=== PATIENT | female | born 1945 | race Caucasian/White ===

== ENCOUNTER 2020-06-02 10:58 | Outpatient (CLI) | payer MEDICARE, OTHER ==
--- NOTE | 2020-06-03 13:38 | Mammography Report ---
BILATERAL DIGITAL SCREENING MAMMOGRAM 3D/2D: 06/02/2020 CLINICAL: Routine screening. Comparison is made to exams dated: 05/02/2019 mammogram, 05/01/2018 mammogram, 04/30/2017 mammogram, 04/14/2016 mammogram, 04/13/2015 mammogram, and 03/26/2014 mammogram - [facility] [place]. The tissue of both breasts is heterogeneously dense. This may lower the sensitivity of mammography. No significant masses, calcifications, or other findings are seen in either breast. There has been no significant interval change. IMPRESSION: NEGATIVE There is no mammographic evidence of malignancy. A 1 year screening mammogram is recommended. This exam was interpreted at Station ID: [id number]. NOTE: For mammograms, a report in lay terms will be sent to the patient. Approximately 15% of breast malignancies will not be visualized mammographically. In the management of a palpable breast mass, a negative mammogram must not discourage biopsy of a clinically suspicious lesion. Electronically Signed By: True Groves M.D. ddp/penrad:06/02/2020 14:34:04 ACR BI-RADS Category 1: Negative 3341F PARENCHYMAL PATTERN: (D) - The breast(s) demonstrate(s) heterogeneously dense fibroglandular hamida bryan. BI-RADS CATEGORY: (1) - 1 RECOMMENDATION: (ANNUAL) - Recommend routine annual screening mammography. [id number] 1 year screening LATERALITY: (B)
== END 2020-06-02 10:59 | disposition home or self-care (01) ==
LOC: DI 10:58
PROVIDERS: ATTEND Family Medicine
DX: Z12.31 Encounter for screening mammogram for malignant neoplasm of breast (principal)
CPT/HCPCS: 77063; 77067

== ENCOUNTER 2021-03-31 10:28 | Outpatient (CLI) | payer MEDICARE, OTHER ==
[2021-03-31 15:12] LABS: ALBUMIN 4.4 g/dL (3.2-5.5); ALBUMIN/GLOBULIN RATIO 1.8 (1.0-2.2); ALKALINE PHOSPHATASE 64 IU/L (42-121); ALT ALANINE AMINOTRANSFERASE 13 IU/L (10-60); AST ASPARTATE AMINOTRANSFERASE 25 IU/L (10-42); BILIRUBIN,TOTAL 0.9 mg/dL (0.2-1.0); BUN - BLOOD UREA NITROGEN 15 mg/dL (6-20); CALCIUM 9.3 mg/dL (8.5-10.3); CARBON DIOXIDE - CO2 28 mmol/L (21-32); CHLORIDE 100 mmol/L (101-111); CHOL/HDL RATIO 3.1 (<4.4); CHOLESTEROL 266 mg/dL; CREATININE 0.7 mg/dL (0.4-1.0); GFR - MDRD 81 (>89); GLUCOSE 102 mg/dL (70-100); HDL CHOLESTEROL 86 mg/dL; LDL CHOLESTEROL,CALCULATED 168 mg/dL; POTASSIUM 3.9 mmol/L (3.5-5.0); SODIUM 137 mmol/L (135-145); TOTAL PROTEIN 6.9 g/dL (6.7-8.2); TRIGLYCERIDES 59 mg/dL; VLDL CHOLESTEROL 12 mg/dL
[2021-04-01 12:21] LABS: HEPATITIS C ANTIBODY NON-REACTIVE (NON-REACTIVE)
== END 2021-03-31 10:29 | disposition home or self-care (01) ==
LOC: LAB.S 10:28
PROVIDERS: ATTEND Physician Assistant
DX: E78.00 Pure hypercholesterolemia, unspecified (principal); Z11.59 Encounter for screening for other viral diseases
CPT/HCPCS: 36415; 80053; 80061; 83721; 86803

== ENCOUNTER 2021-06-23 10:54 | Outpatient (CLI) | payer MEDICARE, OTHER ==
--- NOTE | 2021-06-23 17:35 | DEXA Report ---
PROCEDURE: Dexa Spine and/or Hip INDICATIONS: POST MENOPAUSAL TECHNIQUE: Dual energy x-ray absorptiometry (DXA) was performed on a PLUMgrid System. Regions measur ed are the AP Spine, femoral neck, and if needed forearm. COMPARISON: None. FINDINGS: Lumbar Spine: Bone Mineral Density 0.943 g/cm/cm,T score -2.0, osteopenia Left Hip: Bone Mineral Density 0.889 g/cm/cm,T score -0.9, normal Left Femoral Neck: Bone Mineral Density 0.821 g/cm/cm, T score -1.6, osteopenia (T score greater or equal to -1.0: NORMAL) (T score from -1.1 to -2.4: OSTEOPENIA) (T score less than or equal to -2.5 to: OSTEOPOROSIS) Impression: Osteopenia Patients with diagnosis of osteoporosis or osteopenia should have regular bone mineral density assess ment. For those eligible for Medicare, routine testing is allowed once every 2 years. Testing frequ ency can be increased for patients who have rapidly progressing disease or for those who are receivin g medical therapy to restore bone mass. Reviewed by: Catherine Oseguera MD, PhD on 06/23/2021 5:34 PM PDT Approved by: Catherine Oseguera MD, PhD on 06/23/2021 5:34 PM PDT Station ID: [id number]
== END 2021-06-23 10:55 | disposition home or self-care (01) ==
LOC: DI 10:54
PROVIDERS: ATTEND Physician Assistant
DX: Z78.0 Asymptomatic menopausal state (principal); M85.89 Other specified disorders of bone density and structure, multiple sites

== ENCOUNTER 2021-06-23 10:55 | Outpatient (CLI) | payer MEDICARE, OTHER ==
--- NOTE | 2021-06-27 08:49 | Mammography Report ---
BILATERAL DIGITAL SCREENING MAMMOGRAM 3D/2D: 06/23/2021 CLINICAL: Routine screening. Comparison is made to exams dated: 06/23/2021 mammogram, 06/02/2020 mammogram - [facility], 05/02/2019 mammogram, 05/01/2018 mammogram, 04/30/2017 mammogram, and 04/14/2016 mammogram - [facility]. The tissue of both breasts is heterogeneously dense. This may lower the sensit ivity of mammography. No significant masses, calcifications, or other findings are seen in either breast. There has been no significant interval change. IMPRESSION: NEGATIVE There is no mammographic evidence of malignancy. A 1 year screening mammogram is recommended. This exam was interpreted at Station ID: [id number]. NOTE: For mammograms, a report in lay terms will be sent to the patient. Approximately 15% of breast malignancies will not be visualized mammographically. In the management of a palpable breast mass, a negative mammogram must not discourage biopsy of a clinically suspicious lesion. Electronically Signed By: Shauna farmer/marcia:06/24/2021 10:03:36 ACR BI-RADS Category 1: Negative 3341F PARENCHYMAL PATTERN: (D) - The breast(s) demonstrate(s) heterogeneously dense fibroglandular hamida bryan. BI-RADS CATEGORY: (1) - 1 RECOMMENDATION: (ANNUAL) - Recommend routine annual screening mammography. [id number] 1 year screening LATERALITY: (B)
== END 2021-06-23 10:56 | disposition home or self-care (01) ==
LOC: DI 10:55
PROVIDERS: ATTEND Physician Assistant
DX: Z12.31 Encounter for screening mammogram for malignant neoplasm of breast (principal)

== ENCOUNTER 2021-07-29 09:59 | Day surgery (SDC) | payer MEDICARE, OTHER ==
[2021-07-29] MEDS ORDERED: LACTATED RINGERS 1,000 ML IV ONE ×2 (10:05→12:11)
--- NOTE | 2021-07-29 10:16 | ANESTHESIA ---
Pre-Anesthesia VS, & Labs - Diagnosis positive cologuard - Procedure colonoscopy w/biopsies - NPO >8 hours - Is Patient ?: No - Lab Results Lab results reviewed: Yes Home Medications and Allergies Home Medications: Ambulatory Orders No Known Home Medications 07/28/21 No Known Home Medications 07/28/21 Allergies/Adverse Reactions: Allergies Allergy/AdvReac Type Severity Reaction Status Date / Time nitroglycerin AdvReac Unknown Verified 07/28/21 12:33 Anes History & Medical History - Anesthetic History Anesthesia Complications: reports: No previous complications Family history of Anesthesia Complications: Denies Family history of Malignant Hyperthermia: Denies - Medical History Cardiovascular: reports: None Pulmonary: reports: None Gastrointestinal: reports: None, Hemorrhoids Urinary: reports: None Musculoskeletal: reports: None Endocrine/Autoimmune: reports: None Skin: reports: Eczema - Surgical History General: reports: Colonoscopy Gynecologic: reports: Tubal ligation Exam General: Alert, Oriented x3, Cooperative Dental: WNL, Other (loose crown at upper right) Mouth Openin Fingerbreadth Neck Mobility: Normal Mallampati classification: II Thyromental Distance: 4-6 cm Respiratory: Lungs clear, Normal breath sounds, No respiratory distress Cardiovascular: Regular rate Neurological: Normal speech Mental/Cognitive Status: Alert/Oriented X3, Normal for patient Cognitive Status: Within normal limits Plan Anesthesia Type: Total IV Consent for Procedure(s) Verified and Reviewed: Yes Code Status: Attempt Resuscitation ASA classification: 2-Mild systemic disease Is this case an emergency?: No
--- NOTE | 2021-07-29 10:54 | HISTORY & PHYSICAL EXAMINATION ---
Chief Complaint - Chief Complaint Chief Complaint: here for colon cancer screening History of Present Illness - History Obtained From Records Reviewed: yes History obtained from: pt Exam Limitations: none - History of Present Illness HPI Comment/Other: Positive cologuard. 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 Meds/Allgy - Home Medications Home Medications: Ambulatory Orders Medication Instructions Recorded Confirmed No Known Home Medications 07/28/21 07/28/21 - Allergies Allergies/Adverse Reactions: Allergies Allergy/AdvReac Type Severity Reaction Status Date / Time nitroglycerin AdvReac Unknown Verified 07/28/21 12:33 Review of Systems - Other Findings Other Findings: 10 pt ros as above otherwise unremarkable Exam - Vital Signs Reviewed Vital Signs: Yes Vital Signs: Vital Signs x48h Temp Pulse Resp BP Pulse Ox 07/29/21 10:26 36.6 C 71 13 134/70 H 100 - Physical Exam General Appearance: positive: No acute distress, Alert Eyes Bilateral: positive: PERRL, EOMI ENT: positive: No signs of dehydration Neck: positive: No JVD Respiratory: positive: No respiratory distress, Breath sounds nml Cardiovascular: positive: Regular rate & rhythm Abdomen: positive: Non-tender, No distention Neurologic/Psychiatric: positive: Oriented x3 Conclusion/Plan - Problem List (1) Positive colorectal cancer screening using Cologuard test Conclusion/Plan: plan colonoscopy. parq held and consent obtained - Lab Results Lab results reviewed: Yes
[2021-07-29] MEDS ORDERED: LIDOCAINE-MPF 2% 5 ML VIAL ONE (11:40)
[2021-07-29] MEDS ORDERED: PROPOFOL 500 MG/50 ML 500 MG/50 ML VIAL ONE (12:02)
[2021-07-29 12:32] VITALS: BP 108/94
--- NOTE | 2021-07-29 12:58 | ANESTHESIA POST OP EVALUATION ---
Anesthesia Post Eval - Post Anesthesia Eval Vitals: Last Vital Signs Temp 36.8 C 07/29/21 12:12 Pulse 72 07/29/21 12:32 Resp 17 07/29/21 12:32 BP 108/94 H 07/29/21 12:32 Pulse Ox 100 07/29/21 12:32 CV Function Including HR & BP: Stable Pain Control: Satisfactory Nausea & Vomiting: Negative Mental Status: Baseline Respiratory Status: Airway Patent Hydration Status: Satisfactory Anesthesia Complications: None
== END 2021-07-29 10:00 | disposition home or self-care (01) ==
LOC: SDS 09:59
PROVIDERS: ATTEND Surgery
DX: K57.30 Diverticulosis of large intestine without perforation or abscess without bleeding (principal); Z20.822 Contact with and (suspected) exposure to COVID-19
CPT/HCPCS: 45378; 87635; J7120

== ENCOUNTER 2022-02-23 11:28 | Outpatient (CLI) | payer MEDICARE, OTHER ==
--- NOTE | 2022-02-23 15:26 | XRAY Report ---
PROCEDURE: Hip w/Pelvis 2-3V RT INDICATIONS: PAIN IN R HIP JOINT TECHNIQUE: AP pelvis with lateral view(s) of the right hip(s). COMPARISON: None. FINDINGS: Bones: No fractures or dislocations. Pelvic ring appears intact. No suspicious bony lesions. Soft tissues: The visualized bowel gas pattern is normal. No suspicious soft tissue calcifications. IMPRESSION: Unremarkable right hip and pelvis radiograph Reviewed by: Jayson Ojeda MD on 02/23/2022 2:25 PM [facility] Approved by: Jayson Ojeda MD on 02/23/2022 2:25 PM AK[facility] Station ID: [id number]
--- NOTE | 2022-02-23 16:42 | XRAY Report ---
PROCEDURE: Knee 3 View RT INDICATIONS: PAIN OF R KNEE JOINT TECHNIQUE: 3 views of the right knee(s) were acquired. COMPARISON: None. FINDINGS: Bones: No fractures or dislocations. No suspicious bony lesions. Soft tissues: No joint effusion. No suspicious soft tissue calcifications. IMPRESSION: No acute fracture. No osseous lesion. If symptoms and/or clinical suspicion for patholog y continue, further assessment with repeat plain films, or advanced imaging (e.g., CT, MRI, or bone s can) is recommended for further assessment. Reviewed by: Scott Reyes MD on 02/23/2022 4:40 PM PDT Approved by: Scott Reyes MD on 02/23/2022 4:40 PM PDT Station ID: [id number]
== END 2022-02-23 11:29 | disposition home or self-care (01) ==
LOC: DI.S 11:28
PROVIDERS: ATTEND Family Medicine
DX: M25.551 Pain in right hip (principal); M25.561 Pain in right knee

== ENCOUNTER 2022-06-26 10:18 | Outpatient (CLI) | payer MEDICARE, OTHER ==
--- NOTE | 2022-06-27 10:32 | Mammography Report ---
BILATERAL DIGITAL SCREENING MAMMOGRAM 3D/2D WITH EXAGGERATED CC: 06/26/2022 CLINICAL: Routine screening. Family history of breast cancer. Comparison is made to exams dated: 06/23/2021 mammogram, 06/23/2021 mammogram, 06/02/2020 mammogram - [facility], and 05/02/2019 mammogram - [facility] [place]. Both breasts are heterogeneously dense, which may obscure small masses (category c / 51-75% glandula r tissue). No significant masses, calcifications, or other findings are seen in either breast. There has been no significant interval change. IMPRESSION: NEGATIVE There is no mammographic evidence of malignancy. A 1 year screening mammogram is recommended. Based on the Tyrer Cuzick model (a risk assessment model) the patients lifetime risk is 6.8% and her 10 year risk is 0.0%. According to the ACR, ACS, and NCCN guidelines, an annual breast MRI exam carlos g with mammogram is recommended if the patients lifetime risk is 20% or greater. This exam was interpreted at Station ID: [id number]. NOTE: For mammograms, a report in lay terms will be sent to the patient. Approximately 15% of breast malignancies will not be visualized mammographically. In the management of a palpable breast mass, a negative mammogram must not discourage biopsy of a clinically suspicious lesion. Electronically Signed By: Carlene hollis/marcia:06/26/2022 14:50:42 ACR BI-RADS Category 1: Negative 3341F PARENCHYMAL PATTERN: (D) - The breast(s) demonstrate(s) heterogeneously dense fibroglandular hamida bryan. BI-RADS CATEGORY: (1) - 1 RECOMMENDATION: (ANNUAL) - Recommend routine annual screening mammography. [id number] 1 year screening LATERALITY: (B)
== END 2022-06-26 10:19 | disposition home or self-care (01) ==
LOC: DI.S 10:18
DX: Z12.31 Encounter for screening mammogram for malignant neoplasm of breast (principal); Z80.3 Family history of malignant neoplasm of breast

== ENCOUNTER 2022-09-18 13:53 | Outpatient (CLI) | payer MEDICARE, OTHER ==
--- NOTE | 2022-09-18 12:15 | XRAY Report ---
PROCEDURE: Foot 3 View LT INDICATIONS: SPRAIN OF LEFT FOOT TECHNIQUE: 3 views of the foot were acquired. COMPARISON: None FINDINGS: Bones: No fractures or dislocations. Osteoarthritic changes are noted throughout throughout left fo ot with joint space narrowing and subchondral sclerosis most notably at first MTP joint and interphal angeal joint. No gross bony erosive changes. No suspicious bony lesion. Soft tissues: No tibiotalar joint effusion. Achilles tendon appears normal. IMPRESSION: No acute left foot fracture or dislocation. Left foot osteoarthritis. No suspicious bony lesions. Reviewed by: Davian Horowitz MD on 09/18/2022 12:14 PM [facility] Approved by: Davian Horowitz MD on 09/18/2022 12:14 PM PST Station ID: [id number]
== END 2022-09-18 13:54 | disposition home or self-care (01) ==
LOC: DI.S 13:53
PROVIDERS: ATTEND Physician Assistant Medical
DX: M19.072 Primary osteoarthritis, left ankle and foot (principal)

== ENCOUNTER 2023-02-01 11:57 | Outpatient (CLI) | payer MEDICARE, OTHER ==
--- NOTE | 2023-02-01 17:55 | Ultrasound Report ---
PROCEDURE: Head or Neck Soft Tissue INDICATIONS: CERVICAL LYMPHADENOPATHY TECHNIQUE: Real-time scanning was performed of the neck, with image documentation. COMPARISON: None FINDINGS: Multiple small lymph nodes are seen in the left neck that are not significantly enlarged by imaging s ize criteria. No significant lymphadenopathy in the right neck. Incidental note is made of thyroid no dules that are now characterized on this exam. IMPRESSION: 1.No significantly enlarged cervical lymph nodes. 2.Incidental note of thyroid nodules that are not completely characterized on this exam. Consider ded icated follow-up thyroid ultrasound if indicated clinically. Reviewed by: John Amador MD on 02/01/2023 5:54 PM PDT Approved by: John Amador MD on 02/01/2023 5:54 PM PDT Station ID: [id number]
== END 2023-02-01 11:58 | disposition home or self-care (01) ==
LOC: DI 11:57
PROVIDERS: ATTEND Physician Assistant
DX: R59.0 Localized enlarged lymph nodes (principal)

== ENCOUNTER 2023-02-15 12:48 | Outpatient (CLI) | payer MEDICARE, OTHER ==
--- NOTE | 2023-02-15 16:54 | Ultrasound Report ---
PROCEDURE: Head or Neck Soft Tissue INDICATIONS: THYROID NODULE TECHNIQUE: Real-time scanning was performed of the thyroid gland, with image documentation. COMPARISON: None FINDINGS: Right: Thyroid lobe measures 4.1 x 1.0 x 1.2 cm. Left: Thyroid lobe measures 3.8 x 1.3 x 1.2 Isthmus: 2 mm thick. Nodule number: One Location: Right mid thyroid Size: 0.6 x 0.7 x 0.5 cm. Composition: Solid. Echogenicity: Isoechoic. Shape: wider than tall. Margins: Irregular. Echogenic foci: Punctate. Total points: 8 ACR TI-RADS category: 5 Recommendations: Follow-up imaging every year for 5 years Nodule number: Two Location: Right mid thyroid Size: 0.6 x 0.8 x 0.5 cm. Composition: Solid. Echogenicity: Hypoechoic. Shape: wider than tall. Margins: Smooth (0 points). Echogenic foci: None (0 points). Total points: 4 ACR TI-RADS category: 4 Recommendations: No follow-up necessary based on size Nodule number: Three Location: Right lower thyroid Size: 1.1 x 1.5 x 1.2 cm. Composition: Solid. Echogenicity: Hypoechoic. Shape: wider than tall. Margins: Smooth (0 points). Echogenic foci: None (0 points). Total points: 4 ACR TI-RADS category: 4. Recommendations: Follow-up imaging at 1, 2, 3 and 5 years. Nodule number: Four Location: Left mid thyroid Size: 0.6 x 0.8 by 0.7 cm Composition: Solid. Echogenicity: Hypoechoic. Shape: wider than tall. Margins: Smooth (0 points). Echogenic foci: None (0 points). Total points: 4 ACR TI-RADS category: 4 Recommendations: Follow-up imaging at 1, 2, 3, and 5 years. IMPRESSION: 1. Bilateral thyroid nodules with follow-up imaging recommendations as above. Reviewed by: Scott Reyes MD on 02/15/2023 4:53 PM PDT Approved by: Scott Reyes MD on 02/15/2023 4:53 PM PDT Station ID: [id number]
== END 2023-02-15 12:49 | disposition home or self-care (01) ==
LOC: DI 12:48
PROVIDERS: ATTEND Physician Assistant
DX: E04.2 Nontoxic multinodular goiter (principal)

== ENCOUNTER 2023-07-16 14:10 | Outpatient (CLI) | payer MEDICARE, OTHER ==
--- NOTE | 2023-07-18 12:04 | Mammography Report ---
BILATERAL DIGITAL SCREENING MAMMOGRAM 3D/2D WITH EXAGGERATED CC: 07/16/2023 CLINICAL: Routine screening. Family history of breast cancer. Comparison is made to exams dated: 06/26/2022 mammogram, 06/23/2021 mammogram, 06/23/2021 mammogram, 06/02/2020 mammogram - [facility], 05/02/2019 mammogram, and 05/01/2018 mammogram [facility]. Both breasts are heterogeneously dense, which may obscure small masses (category c / 51-75% glandular tissue). No significant masses, calcifications, or other findings are seen in either breast. IMPRESSION: NEGATIVE There is no mammographic evidence of malignancy. A 1 year screening mammogram is recommended. Based on the Tyrer Cuzick model (a risk assessment model) the patients lifetime risk is 6.1% and her 10 year risk is 0.0%. According to the ACR, ACS, and NCCN guidelines, an annual breast MRI exam carlos g with mammogram is recommended if the patients lifetime risk is 20% or greater. This exam was interpreted at Station ID: [id number]. NOTE: For mammograms, a report in lay terms will be sent to the patient. Approximately 15% of breast malignancies will not be visualized mammographically. In the management of a palpable breast mass, a negative mammogram must not discourage biopsy of a clinically suspicious lesion. Electronically Signed By: Janee Barrera M.D., PH.D nii/marcia:07/18/2023 00:45:51 letter sent: No_Letter ACR BI-RADS Category 1: Negative 3341F PARENCHYMAL PATTERN: (D) - The breast(s) demonstrate(s) heterogeneously dense fibroglandular hamida bryan. BI-RADS CATEGORY: (1) - 1 Mammogram [id number] 1 year screening LATERALITY: (B)
== END 2023-07-16 14:11 | disposition home or self-care (01) ==
LOC: DI.S 14:10
PROVIDERS: ATTEND Physician Assistant
DX: Z12.31 Encounter for screening mammogram for malignant neoplasm of breast (principal); R92.333 Mammographic heterogeneous density, bilateral breasts; Z80.3 Family history of malignant neoplasm of breast

== ENCOUNTER 2023-09-20 14:39 | Outpatient (CLI) | payer MEDICARE, OTHER | END 2023-09-20 14:40 | disposition EMS.NT | LOC: EMS 14:39 | DX: M54.50 Low back pain, unspecified (principal); M79.604 Pain in right leg; X50.1XXA Overexertion from prolonged static or awkward postures, initial encounter; Y93.E8 Activity, other personal hygiene; Y92.009 Unspecified place in unspecified non-institutional (private) residence as the place of occurrence of the external cause ==

== ENCOUNTER 2023-09-21 10:00 | Outpatient (CLI) | payer MEDICARE, OTHER | END 2023-09-21 10:01 | disposition critical access hospital (66) | LOC: EMS 10:00 | DX: S39.92XA Unspecified injury of lower back, initial encounter (principal); X50.1XXA Overexertion from prolonged static or awkward postures, initial encounter; Y93.E8 Activity, other personal hygiene | CPT/HCPCS: A0425; A0429 ==

== ENCOUNTER 2023-09-21 10:38 | Emergency (ER) | payer MEDICARE, OTHER ==
[2023-09-21] MEDS ORDERED: ONDANSETRON ODT 4 MG TABLET TL STA (11:19)
[2023-09-21] MEDS ORDERED: HYDROmorphone 1 MG/ML CARPUJECT IM STA (11:19)
--- NOTE | 2023-09-21 11:23 | ED Physician Documentation ---
PD HPI BACK PAIN - Stated complaint Stated Complaint: BACK PX - Chief complaint Chief Complaint: Back Pain - History obtained from History obtained from: Patient - Additional information Additional information: She has a history of intermittent back pain. Yesterday afternoon she was putting on her socks while standing up and developed significant pain in the right low back. She is pain-free at rest but with any motion she has severe pain. There is no weakness, numbness, tingling, saddle anesthesia, fevers, nor incontinence with it. She tried Tylenol without relief. PD PAST MEDICAL HISTORY - Past Medical History Other Past Medical History: chronic neck/shoulder pain, R leg lymphedema - Present Medications Home Medications: Ambulatory Orders Medication Instructions Recorded Confirmed Multivitamin 1 each PO DAILY 07/29/21 07/29/21 Cyclobenzaprine [Flexeril] 10 mg PO TID PRN #20 tablet 09/21/23 HYDROcod/ACETAM 5/325 [[place] 5/325] 1 - 2 tab PO Q6H PRN #15 tablet 09/21/23 Ibuprofen [Motrin] 600 mg PO Q6H PRN #10 tab 09/21/23 - Allergies Allergies/Adverse Reactions: Allergies Allergy/AdvReac Type Severity Reaction Status Date / Time nitroglycerin AdvReac Unknown Verified 07/29/21 11:03 - Social History Does the pt smoke?: No Smoking Status: Never smoker - POLST Patient has POLST: No PD ED PE NORMAL - Vitals Vital signs reviewed: Yes - General General: Alert and oriented X 3, Other (She is comfortable at rest but winces with any motion) - Abdomen Abdomen: Non tender - Back Back: No spinal TTP - Extremities Extremities: Other (The patient has equal and normal Achilles and patellar reflexes bilaterally. Normal sensation in all areas of the legs. Patient denies saddle anesthesia. Normal strength in flexion-extension at the ankles, knees, and flexion of the hips.) - Neuro Neuro: Alert and oriented X 3, Normal speech Results - Vitals Vitals: Vital Signs - 24 hr 09/21/23 09/21/23 11:01 13:25 Temperature 36.8 C Heart Rate 69 69 Respiratory 18 18 Rate Blood Pressure 125/86 H 115/63 O2 Saturation 100 97 Oxygen O2 Source Room air PD Medical Decision Making - ED course ED course: This patient has seemingly uncomplicated musculoskeletal back pain. The patient has no "red flags." Specifically denies IV drug use, fevers, incontinence, saddle anesthesia. Spinal epidural abscess was considered, given that the patient has no fever, is not diabetic, has no spinal tenderness, does not use IV drugs, and has no bilateral neurologic symptoms, the diagnosis of spinal epidural abscess is considered exceedingly unlikely. Initially medicated with 1 mg of Dilaudid IM after which she was still nonfunctional. Subsequently got IM Toradol and Ativan and was able to walk unassisted. Departure - Departure Disposition: Home, Self Care Clinical Impression: Back spasm Condition: Good Record reviewed to determine appropriate education?: Yes Instructions: ED Spasm Back No Trauma Prescriptions: Cyclobenzaprine [Flexeril] 10 mg PO TID PRN #20 tablet PRN Reason: Spasms Ibuprofen [Motrin] 600 mg PO Q6H PRN #10 tab PRN Reason: Pain HYDROcod/ACETAM 5/325 [[place] 5/325] 1 - 2 tab PO Q6H PRN #15 tablet PRN Reason: Pain Comments: I sent your prescription electronically to the [facility] in [place]. I expect you to improve over the next few days. You can use heat and gentle stretching as well. Call your doctor to arrange a follow-up appointment, make the next available appointment. In the interim, return anytime if worse or if new symptoms develop. I am prescribing a short course of narcotic pain medication for you. These are potentially dangerous and addictive medications that should be used carefully. These medications may constipate you. Take an [id number] stool softener (docusate) twice daily with plenty of water while taking these medications. If you go 24 hours without a bowel movement, take [id number]-[id number]-[id number] miralax, per package instructions. Do not drink or drive while taking these medications. If you received narcotic or sedating medications while in the emergency department, do not drive for 24 hours. Store this medication in a safe, secure place and out of reach of children. It is a violation of federal law to give or sell this medication to another person or to use in a manner other than prescribed. The ED will not refill narcotic prescriptions, including prescriptions lost or stolen. To dispose of unwanted medications: 1. [facility]'s Office provides a drop box for medication in pill form only (no liquids) 8:00 am to 4:30 p.m. Sunday-Sunday in the lobby of [facility], [address] Empty pills into ziplock bag before disposal. Call [phone] for information. 2.[employer] is a free service available to all [facility] residents. Go to [email or web address] Note that many narcotic pain relievers also contain Tylenol/acetaminophen. Please ensure that your total dose of acetaminophen from all sources does not exceed 3 g (3000 mg) per day. Discharge Date/Time: 09/21/23 15:11
[2023-09-21] MEDS ORDERED: LORazepam 2 MG/ML VIAL IM STA (12:07)
[2023-09-21] MEDS ORDERED: KETOROLAC 30 MG/ML VIAL IM STA (12:07)
[2023-09-21 13:26] VITALS: BP 115/63; O2SAT 97
== END 2023-09-21 15:11 | disposition home or self-care (01) ==
LOC: EDUNIT# → ED 10:38 → SUPCPDRO 10:38 → ED 15:11
DX: M62.830 Muscle spasm of back (principal)
CPT/HCPCS: 96372; 99283; J1170; J2060; Q0162

== ENCOUNTER 2024-02-29 11:25 | Outpatient (CLI) | payer MEDICARE, OTHER ==
--- NOTE | 2024-02-29 12:19 | XRAY Report ---
PROCEDURE: Foot 3+V LT INDICATIONS: L HEEL PAIN TECHNIQUE: 3 views of the foot were acquired. COMPARISON: 09/18/2022. FINDINGS: Bones: No fractures or dislocations. No suspicious bony lesions. Soft tissues: No tibiotalar joint effusion. Achilles tendon appears normal. IMPRESSION: No acute bony abnormality. Unremarkable calcaneus. Reviewed by: Kareem Talamantes MD on 02/29/2024 12:18 PM PDT Approved by: Kareem Talamantes MD on 02/29/2024 12:18 PM PDT Station ID: [id number]
== END 2024-02-29 11:26 | disposition home or self-care (01) ==
LOC: DI.S 11:25
PROVIDERS: ATTEND Registered Nurse
DX: M79.672 Pain in left foot (principal)